=== PATIENT | female | born 1960 ===

== ENCOUNTER 2024-09-05 07:07 | Day surgery (SDC) | payer OTHER ==
[2024-09-01 11:34] LABS: URINE APPEARANCE Cloudy; URINE BILIRRUBIN Negative (NEGATIVE); URINE BLOOD Negative; URINE COLOR Yellow; URINE GLUCOSE Negative (NEGATIVE); URINE KETONE Negative (NEGATIVE); URINE LEUKOCYTE Large; URINE NITRATE Positive; URINE PROTEIN Trace (NEGATIVE)
[2024-09-01 11:39] LABS: URINE EPITHELIAL CELLS 5.2 uL (0.0-38.8); URINE RBC 12.8 uL (0.0-20.8); URINE WBC 1210.2 uL (0.0-23.2)
[2024-09-01 11:44] LABS: HEMATOCRIT 36.4 % (36.0-45.00); MEAN CELL VOLUME 84.8 fL (80.00-100.00); MEAN CORPUSCULAR HGB CONC 33.9 g/dl (32.0-36.0); RED BLOOD COUNT 4.29 M/uL (4.00-6.00)
[2024-09-01 11:50] LABS: URINE BACTERIA > 9821.5 uL (0.0-1933); URINE CAST 0.29 uL (0.0-1.40); URINE CRYSTALS FEW /HPF
[2024-09-01 11:53] LABS: INR 1.25; PROTHROMBIN TIME 13.4 SECONDS (9.0-11.5)
[2024-09-01 12:27] LABS: HEMOGLOBIN 12.3 g/dL (12.0-15.00); MEAN CORPUSCULAR HEMOGLOBIN 28.6 pg (27.00-32.0)
[2024-09-01 12:28] LABS: RED CELL DISTRIBUTION WIDTH 18.1 % (11.5-14.5)
[2024-09-01 12:29] LABS: PLATELET COUNT 212 K/uL (150-450)
[2024-09-01 12:30] LABS: ALBUMIN 2.7 gm/dL (3.4-5.0); BILIRUBIN TOTAL 0.71 mg/dL (0.3-1.2); CALCIUM 9.9 mg/dL (8.5-10.1); CREATININE SERUM 0.46 mg/dL (0.55-1.02); GFR 136.76; GLOBULINA 3.2 G/DL (2.4-3.5); POTASSIUM 3.43 mEq/L (3.5-5.1); TOTAL PROTEIN 5.9 gm/dL (6.4-8.2)
[2024-09-05] MEDS ORDERED: LIDOCAINE HCL 1% 10ML VIAL ONE ×2 (15:18→15:59)
[2024-09-05] MEDS ORDERED: CEFAZOLIN SODIUM 1,000 MG VIAL ONE ×3 (15:18→17:25)
[2024-09-05] MEDS ORDERED: BUPIVACAINE HCL/MPF 0.5% 30ML VIAL ONE (15:18)
[2024-09-05] MEDS ORDERED: HEPARIN SODIUM,PORCINE/PF 100 UNIT/ML SYRINGE IV ONE (15:23)
[2024-09-05] MEDS ORDERED: LIDOCAINE HCL 1% 20 ML VIAL IJ ONE (16:15)
[2024-09-05] MEDS ORDERED: FAMOTIDINE/PF 20 MG/10 ML SYRINGE IV SCH (17:15)
[2024-09-05] MEDS ORDERED: CEFAZOLIN SODIUM 1,000 MG VIAL IV SCH (17:15)
[2024-09-05] MEDS ORDERED: FAMOTIDINE/PF 20 MG/2 ML VIAL ONE (17:25)
== END 2024-09-05 19:00 | disposition home or self-care (01) ==
LOC: CIR.AMB 07:07
PROVIDERS: ATTEND Specialist
DX: C25.3 Malignant neoplasm of pancreatic duct (principal)
CPT/HCPCS: 36561; C1751